=== PATIENT | female | born 1975 | race African-American/Black ===

== ENCOUNTER 2018-01-29 13:30 | Emergency (ER) | payer MEDICAID, OTHER ==
[~2018-01-29] VITALS: Ht 175.3 cm; Wt 84.0 kg
[~2018-01-29 13:30] MED LIST: PREN-142 PO; no home meds
[2018-01-29] MEDS ORDERED: ACETAMINOPHEN 500MG TABLET PO ONE ×2 (14:45→20:15)
[2018-01-29 20:15] VITALS: BP 144/74
== END 2018-01-29 20:45 | disposition home or self-care (01) ==
LOC: ER 13:55
DX: S80.212A Abrasion, left knee, initial encounter (principal); S80.211A Abrasion, right knee, initial encounter; Z88.0 Allergy status to penicillin; Z86.73 Personal history of transient ischemic attack (TIA), and cerebral infarction without residual deficits; Z79.899 Other long term (current) drug therapy; W01.0XXA Fall on same level from slipping, tripping and stumbling without subsequent striking against object, initial encounter; Y93.89 Activity, other specified; Y92.89 Other specified places as the place of occurrence of the external cause; Y99.8 Other external cause status
CPT/HCPCS: 73502; 73552; 73560; 99284; L1830